=== PATIENT | female | born 1955 | race Caucasian/White ===

== ENCOUNTER → 2024-06-04 | Outpatient (CLI) | payer SELFPAY, OTHER ==
--- NOTE | 2024-06-04 13:09 | EKG12_ITS ---
Test Reason : PRE OP Blood Pressure : / mmHG Vent. Rate : 067 BPM Atrial Rate : 067 BPM P-R Int : 170 ms QRS Dur : 080 ms QT Int : 386 ms P-R-T Axes : 064 068 064 degrees QTc Int : 407 ms Normal sinus rhythm Normal ECG Confirmed by Zack Santos ([id number]), mapping editor AKIRA SALEEM ([id number]) on 06/08/2024 9:57:42 AM Referred By: Jose Cruz Marquis Confirmed By:Zack Santos
--- NOTE | 2024-06-04 13:15 | CT_ITS ---
STUDY: CT LEFT SHOULDER REASON FOR EXAM: Female, 69 years old. PRE OP WASC/SONTUSION/STRAIN RADIATION DOSAGE (If Supplied By Facility): CTDIvol = ( 23.58 ) mGy, DLP = ( 559.74 ) mGycm TECHNIQUE: The patient was scanned in a multi detector CT scanner. High resolution transaxial imaging was performed without the administration of intravenous contrast material. Sagittal and coronal images were reconstructed. Individualized dose optimization techniques were used for this CT. COMPARISON: None. FINDINGS: Normal glenohumeral articulation. Normal glenoid rim, neck and visualized scapula. There is narrowing of the acromiohumeral space. There is enthesopathic subcortical cyst formation of the greater tuberosity of the humeral head. Intact humeral head, neck and tuberosities. There is minimal atrophy of the supraspinatus muscle. Normal coracoid process. Normal visualized lateral clavicle. There is mild hypertrophic acromioclavicular arthrosis. There is a Type II morphology (curved), with a neutral orientation. Normal visualized muscles and soft tissue structures. CT/Extremity Upper without Contra IMPRESSION: Narrowing of the acromiohumeral space. Minimal atrophy of the supraspinatus muscle. If there is clinical concern for rotator cuff tear, MRI would be the modality of choice for further evaluation. Mild hypertrophic acromioclavicular arthrosis. Electronically Signed: Guillermo Ramos MD at 15:14 EDT ,
[2024-06-04 13:18] LABS: Absolute Lymphocyte Count 1.13 X10^3/uL (0.83-4.51); Absolute Neutrophil Count 3.4 X10^3/uL (2.0-7.7); Basophil# 0.03 X10^3/uL; Basophil% 0.6 % (0-1); Eosinophil# 0.05 X10^3/uL; Hemoglobin 12.8 g/dL (12.0-15.0); Lymphocyte # 1.13 X10^3/ul (0.83-4.51); Lymphocyte % 22.3 % (19-41); Mean Corp Hgb Conc 30.5 g/dL (32-36); Mean Corpuscular Volume 98.6 fL (81-99); Mean Platelet Vol. 9.7 fl (6.2-12.0); Monocyte# 0.45 X10^3/uL; Monocyte% 8.9 % (0-10); NRBC Flagged by Analyzer 0 % (0-5); Neutrophil # 3.39 X10^3/uL (2.7-7.7); Platelet Count 225 K/mm3 (150-450); RBC Distribution Width CV 13.7 % (11.6-14.6); RBC Distribution Width SD 49.8 fl (35.1-43.9); Red Blood Count 4.26 M/mm3 (4.2-5.4); White Blood Count 5.1 K/mm3 (4.4-11.0)
[2024-06-04 13:40] LABS: Albumin, Serum 3.5 g/dL (3.2-5.0); Anion Gap 3 (5-15); BUN 23 mg/dL (7-18); BUN/Creat Ratio 33.9 RATIO (10-20); Chloride 110 mmol/L (98-107); Creatinine, Serum 0.68 mg/dL (0.55-1.02); EST Glomerular Filtration Rate 91 mL/min (>60); Est Glom Filt Rate - Afr Amer 110 mL/min (>60); Glucose 97 mg/dL (74-106); Potassium 4.6 mmol/L (3.5-5.1); Sodium Level 143 mmol/L (136-145)
[2024-06-04 13:53] LABS: Hemoglobin A1c 5.4 % (3.8-5.6)
== END | disposition home or self-care (01) ==
PROVIDERS: PCP Nurse Practitioner Family; Referring Provider Student in an Organized Health Care Education/Training Program; Visit Provider Student in an Organized Health Care Education/Training Program
DX: Z01.810 Encounter for preprocedural cardiovascular examination (principal); S46.012D Strain of muscle(s) and tendon(s) of the rotator cuff of left shoulder, subsequent encounter; S40.012D Contusion of left shoulder, subsequent encounter; Z01.818 Encounter for other preprocedural examination; Z86.718 Personal history of other venous thrombosis and embolism
CPT/HCPCS: 36415; 73200; 80048; 82040; 83036; 85025; 87081; 93005